=== PATIENT | male | born 1940 ===

== ENCOUNTER → 2020-07-08 | Outpatient (CLI) | payer MEDICARE | LOC: LAB SHORT 13:54 → LAB 13:54 | DX: L08.9 Local infection of the skin and subcutaneous tissue, unspecified (principal); D22.62 Melanocytic nevi of left upper limb, including shoulder; L90.5 Scar conditions and fibrosis of skin; L81.4 Other melanin hyperpigmentation | CPT/HCPCS: 87070; 87077; 87186; 87205 ==